=== PATIENT | male | born 1990 | race Caucasian/White ===

== ENCOUNTER 2016-12-06 11:40 | Day surgery (SDC) | payer OTHER ==
[2016-12-06] VITALS (7 sets, daily range): BP systolic 150–179; BP diastolic 77–103; PULSE 56–68; RESP 13–21; O2SAT 96–99
[~2016-12-06] VITALS: Ht 175.9 cm; Wt 161.9 kg
[2016-12-06] MEDS: Lactated Ringer's 1,000 ML IV SCH ×2 (11:35→13:30)
[~2016-12-06 11:40] MED LIST: CYCL10TA9 PO; CeFAZolin Inj 3 GM in IV Premix 1 EACH IV ONE; DOXY100T2 PO; HYDR-4003 PO; TRAZ-115 PO
[2016-12-06] MEDS ORDERED: Propofol 10,000 mCg/mL 20 mL Inj ONE (11:41)
[2016-12-06] MEDS ORDERED: fentaNYL-PF 50 mCg/mL 2 mL Inj ONE (11:41)
[2016-12-06] MEDS ORDERED: CeFAZolin Inj 3 Gm/ D5W 50 mL Bag IV ONE (12:22)
--- NOTE | 2016-12-06 13:43 | PCM.HPANE ---
Patient Data Surgeon Admitting Provider: Attending Provider:Rama Rausch DPM Primary Care Physician:Rupesh Elias MD Other Provider:Di Alberts Anesthesia Reason for Visit Right Foot Subluxed 1ST Ip Joint Ht/WT & BMI Height (Feet): 5 Height (Inches): 9.25 Weight (Kilograms): 161.9 Body Mass Index 52.00 Allergies Coded Allergies: No Known Allergies (Unverified , 08/06/15) Past Anesthesia History Anesthesia History: Denies:: Abnormal Airway, Anesthesia Reactions, Difficult Intubation, Fam Anesthesia Reaction Diabetes History Hx Diabetes?: No MRSA MRSA: No (unsure of- poss a couple years ago) Medications Hypertension Medication: No Home Meds Incl Beta Amy: No Reported Medications Hydrocodone-Acetaminophen 5-325 mg 1 Each Tablet1 Tablet PO Q4H PRN For Pain Ref 0 12/05/16 Discontinued Reported Medications Trazodone 50 Mg [id number] Mg PO HS Ref 0 12/05/16 Doxycycline Hyclate 100 Mg [id number] Mg PO BID 12/05/16 Cyclobenzaprine 10 Mg [id number] Mg PO TID PRN Spasm 12/05/16 History HEENT History: Denies:: Abnormal Airway Cataracts Difficult Intubation Dysphagia Glaucoma Hearing Problem Sinus Problem TMJ Cardiovascular History: Denies:: AICD Abdominal Aortic Aneurism Atrial Fibrillation Chest Pain Congestive Heart Failure Coronary Artery Disease Heart Murmur Hypertension (possible, not been diagnosed but high at [facility] appts) Irregular Heartbeat Pacemaker Peripheral Vascular Hx of Respiratory Problem?: No Respiratory History: Denies:: Asthma COPD Dyspnea Emphysema Oxygen Administration Pneumonia Pulmonary Embolism Tuberculosis Use of C-PAP Machine (past use, stopped using CPAP 3 years ago, couldnt tolerate) Use of Inhalers / NEBS Hx Neurologic Problems?: No Neurological History: Denies:: CVA Headaches Multiple Sclerosis Parkinson's Disease Seizures TIA Other Neurological Pertinent: hx of hereditary neuropathy Hx of GI Problems?: No Gastrointestinal History: Denies:: Cirrhosis Gall Bladder Disease Gastroesphageal Reflux Gastrointestinal Bleeding Heartburn Hepatitis Hiatal Hernia Liver Disease Rectal Bleeding Hx of Problems?: No Genitourinary History: Denies:: Kidney Stones Urinary Tract Infection Male Hx: Denies:: Prostate Problems Scrotal Mass Testicular Surgery Skin History: Positive for:: History Skin Disorders? (wound right foot) Denies:: Pressure Ulcers Hx Musculoskeletal Problems?: Yes Musculoskeletal History: Positive for:: Musculoskeletal Trauma (right foot non healing wound) Denies:: Back Injury Fibromyalgia Myasthenia Gravis Osteoarthritis Hx of Psycho/Social Problems?: Yes Psycho Social History: Positive for:: Hx Depression (in past) Denies:: Anxiety Hx Surgeries?: Yes (multiple foot surgery) Hx Any Other Health Problems?: Yes Other History: Denies:: Cancer Thyroid Disease History Blood Transfusions: Positive for:: Accept Blood Products? Denies:: Blood Transfusions Hx Diabetes: No Hx Alcohol Use: YesAlcoholic Drinks Per Day: couple of beers eveningHx Substance Use: Yes (marijuana daily)Have You Smoked inLast 12 mo: No Stop/Bang S-Snoring: Do You Snore Loudly: No T-Tired: feel tired, fatigued: No O-Obsered: Observed not breath: No P-Blood Pressure: treated: No B- Body Mass Index > 35 kg/m2: Yes A- Age over 50: Yes N- Neck Large Circumference: Yes G- Gender Male: Yes MIMI Total Score: 4 Risk Assessment Category Category 1A: Patient has history of documented sleep apnea, and HAS NOT received any narcotic, sedative or anesthesia administration during this stay. Category 1B: Patient has history of documented sleep apnea, and HAS received any narcotic , sedative or anesthesia administration during this stay Category 2: Patient has SUSPECTED Obstructive Sleep Apnea, and HAS received any narcotic , sedative or anesthesia administration during this stay. Category 3: Patient has SUSPECTED Obstructive Sleep Apnea and HAS NOT received narcotic, sedative or anesthesia administration during this stay. Category 4: Outpatient in Procedural Areas with known sleep apnea or who screen positive for High Risk via the STOP/BANG questionnaire. Exam Exam Vital Signs Vital Signs Date Time Temp Pulse Resp B/P Pulse Ox O2 Delivery O2 Flow Rate FiO2 12/06/16 12:34 36.4 68 18 167/77 99 Room Air General Appearance: Alert, Oriented X3, Cooperative HEENT/AIRWAY: MP 2 Lungs: Clear to Auscultation Heart: Exam Unremarkable Meds/Labs/Diagnostics Admission Meds Current Medications Lactated Ringer's (Lr) 1,000 ml @ 120 mls/hr Q8H20M IV Last administered on t 11:35; Start 12/06/16 at 05:00; Stop 12/06/16 at 13:19; Status DC Plan Impression Patient chart reviewed, patient interviewed and anesthestic plan with risks, benefits, and alternatives discussed, and informed consent obtained. NPO Status: water at 0830 ASA Physical Status: ASA3 Severe Disease Anesthetic Plan: MAC Bene/Risks/Altern/Consents: Yes HP Complete Prior to Induction: Yes Wilmar Lew MD Dec 06, 2016 13:43
[2016-12-06] MEDS ORDERED: Lidocaine 2%-Epi 1:100,000 20 mL Inj INFILTRATE ONE (14:33)
[2016-12-06] MEDS ORDERED: Lidocaine PF 1% 30 mL Inj NERVEBLOCK ONE (14:33)
[2016-12-06] MEDS ORDERED: Bupivacaine-MPF 0.5% 30 mL Inj INFILTRATE ONE (14:34)
[2016-12-06] MEDS ORDERED: Lactated Ringer's 1,000 ML IV ONE (15:10)
[2016-12-06] MEDS ORDERED: HYDROcodone-APAP 5-325 mg Tablet PO PRN (15:50)
[2016-12-06] MEDS ORDERED: Lactated Ringer's 1,000 ML IV SCH (15:54)
[2016-12-06] MEDS ORDERED: Lactated Ringer's 500 ML IV PRN (15:54)
--- NOTE | 2016-12-06 15:54 | PCM.PODPO ---
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 It was excised, along with the entire joint, in preparation for fusion. Details of Procedure The patient was identified in the preoperative holding area and brought back to the operating room. He was placed on the operating table in supine position. The timeout protocol was completed and the right foot confirmed as operative site. The right foot was anesthetized with a local block after IV sedation was initiated. The right foot was prepped and draped in usual aseptic manner. An incision was made on the dorsomedial aspect of the first metatarsophalangeal joint and extended medially and horizontally across the interphalangeal joint. Bleeding vessels were cauterized as needed, but they continue to bleed slightly throughout the case. After cold irrigation with saline was applied, the bleeding subsided. The extensor hallucis longus tendon was transected at the interphalangeal joint. The joint was resected, the underlying sesamoid was found to be soft and was resected as well. The wound was irrigated with normal saline, the joint surfaces reapproximated and fixated with a single partially threaded 3.5 mm cannulated screw from distal tuft across the interphalangeal joint and into the proximal phalanx. Fluoroscopic guidance was used to confirm joint apposition and hardware placement. The plantar ulceration, measuring 0.6 x 0.3 cm in size and 0.5 cm in depth, was excised through skin and subcutaneous tissue. Post-debridement measurement was 1 cm x 0.5 cm and 0.5 cm deep. 1 Prolene in horizontal suture was used to reapproximate the edges. The patient tolerated the procedure well, was weaned off of anesthesia, and taken to the recovery room with vital signs stable and vascular status of the right foot intact. Grafts, Implants: Implants-See Implant Record Complications There were no periprocedural complications identified. Condition Stable Anesthetic Administered: MAC Drains: None Catheters: None Output, Estimated Blood Loss: 30 (ml) Blood Admin during surgery: No Surgical Cast or Splint: Post-op Boot Surgical Specimen Removed: No Specimen sent to Pathology: No Post Operative Plan Weight-bear to tolerance, only inside the house for basic needs for 2 weeks. Discharge home with postop follow-up next week, as previously arranged. Rama Rausch DPM Dec 06, 2016 15:54
[2016-12-06] MEDS ORDERED: MetoCLOpramide 5 mg/mL 2 mL Inj IVPUSH PRN (15:55)
[2016-12-06] MEDS ORDERED: Ondansetron 2 mg/mL 2 mL Inj IVPUSH PRN (15:55)
[2016-12-06] MEDS ORDERED: fentaNYL-PF 50 mCg/mL 2 mL Inj IVPUSH PRN (15:55)
[2016-12-06] MEDS ORDERED: EPHEDrine Sulfate 50 mg/mL Inj IVPUSH PRN (15:55)
[2016-12-06] MEDS ORDERED: HYDROmorphone 1 mg/mL Inj IVPUSH PRN (15:55)
[2016-12-06] MEDS ORDERED: Dexamethasone 4 mg/mL Inj IVPUSH PRN (15:55)
[2016-12-06] MEDS ORDERED: Phenylephrine 10,000 mCg/mL Inj IVPUSH PRN (15:55)
--- NOTE | 2016-12-06 15:57 | PCM.ANEP1 ---
Post Anesthesia Phase 1 PACU Phase 1 Assessment Date of Service: Dec 06, 2016 Vital Signs Vital Signs Date Time Temp Pulse Resp B/P Pulse Ox O2 Delivery O2 Flow Rate FiO2 12/06/16 15:52 36.0 66 21 179/103 96 Room Air 12/06/16 12:34 36.4 68 18 167/77 99 Room Air Anesthetic Administered: MAC Level of Alertness: Awake, talking RIVERO's with Equal Strength: Yes Pain: No Nausea or Vomiting: No Oxygen Delivery: Room Air Lungs: Clear to Auscultation Dermatome Level: Full Sensation Wilmar Lew MD Dec 06, 2016 15:57
--- NOTE | 2016-12-06 15:58 | PCM.ANEP2 ---
Post Anesthesia Evaluation ASA/CMS Post Anesthesia VS in Patient's Normal Range?: Yes Resp Stable; Airway Patent?: Yes CV Function & Hydration Stable: Yes Mental Status Recovered?: Yes Pain control Satisfactory?: Yes N/V Control Satisfactory?: Yes Wilmar Lew MD Dec 06, 2016 15:58
== END 2016-12-06 23:59 | disposition home or self-care (01) ==
LOC: SAS 11:40
PROVIDERS: ATTEND Podiatrist
PROC: 0JBQ0ZZ Excision of Right Foot Subcutaneous Tissue and Fascia, Open Approach (ICD-10-PCS; principal; 2016-12-06 13:30)
DX: M20.5X1 Other deformities of toe(s) (acquired), right foot (principal); L97.511 Non-pressure chronic ulcer of other part of right foot limited to breakdown of skin; G62.9 Polyneuropathy, unspecified; F32.9 Major depressive disorder, single episode, unspecified; F12.90 Cannabis use, unspecified, uncomplicated
CPT/HCPCS: 11042; 28755; 76000; C1713; J0690; J2250; J3010; J7120

== ENCOUNTER 2017-05-26 17:06 | Inpatient (IN) | payer OTHER ==
[~2017-05-26] VITALS: Ht 175.3 cm; Wt 156.6 kg
[~2017-05-26 17:06] MED LIST changes: -CYCL10TA9 PO; -CeFAZolin Inj 3 GM in IV Premix 1 EACH IV ONE; -DOXY100T2 PO; -TRAZ-115 PO
[2017-05-26 17:15] VITALS: PULSE 82; RESP 34; O2SAT 100
[2017-05-26] MEDS ORDERED: SULF1TAB7 PO (17:48)
[2017-05-26] MEDS ORDERED: OXYC15TA45 PO (17:48)
--- NOTE | 2017-05-26 17:49 | ED.REPORT ---
HPI-Extremity Problem Lower Date of Service May 26, 2017 ED Provider: Dr. Mandeep Webber MD A 26 year old male with a history of hereditary peripheral neuropathy, right rockerbottom foot deformity and reducible hammertoes presents to the ED with left LE cellulitis that began [address] Rausch sent the patient to the ED for further evaluation following an ineffective course of Bactrim. Patient presents with increased swelling and erythema to the affected foot. Associated symptoms also include a fever of 103F, cough and vomiting. His symptoms have become progressively worse over the past 3 days. Nursing Notes Stated Complaint: CELLULITIS INFECTION Chief Complaint: General Complaint Nursing Notes Reviewed: Yes Allergies: Coded Allergies: No Known Allergies (Unverified , 08/06/15) Scheduled Sulfamethoxazole/Trimeth 800-160 mg (Bactrim DS) 1 Each Tablet 1 TABLET PO BID Scheduled PRN Oxycodone (Roxicodone) 15 Mg Tablet 15 MG PO Q6H PRN PRN For Pain General Time Seen by MD: 17:49 Chief Complaint Leg injury left Hx Obtained From: Patient Arrived By: Walk-in Onset Occurred: 3 days ago Symptom Duration: Since onset Location: : Leg left Quality: Painful Severity: Current: Moderate Severity: Maximum: Moderate Associated with: Reports: Fever Pertinent Negative: Pt denies other symptoms Recent Healthcare: No recent hospitalization, Recent doctor visit Past Medical History Past Medical History Hereditary peripheral neuropathy Right rockerbottom foot deformity Reducible hammertoes Past Surgical History Right hallux interphalangeal joint fusion Excisional debridement of plantar right hallux ulceration with primary reapproximation Smoking History Unknown if Ever Smoker Social History Alcohol Use: Denies alcohol use Drug Use: Denies drug use Other Social History: Good social support, Local resident Ambulatory Status Independent Review of Systems Constitutional: Reports: Fever Musculoskeletal: Reports: Extremity pain (L foot pain), Extremity swelling (L foot swelling ad redness) Complete sys rev & neg: except as marked. Respiratory: Reports: Non-productive cough GI: Reports: Vomiting Physical Exam Initial Vital Signs Vital Signs (First) Date Time Temp Pulse Resp B/P Pulse Ox O2 Delivery O2 Flow Rate FiO2 05/26/17 17:15 37.7 82 34 100 Room Air 05/26/17 19:00 141/71 Initial VS: Reviewed Head / Eyes: Atraumatic, Normocephalic, PERRL Neck: Supple, Non-tender, Full range of motion Upper Extremities: Vascular intact, Neuro intact, No swelling, No tenderness Skin: Warm, Dry, No cyanosis Neurologic: Alert, Oriented, Nonfocal Psychiatric: Mood/affect normal, Behavior normal, Normal thought content Lower Extremity / Pelvis / MS: Atraumatic, Neurologic intact, Vascular intact Bright red cellulitis to the left leg and foot with small patches of erythema Exquisitely tender No signs of DVT Ankle / Foot: Atraumatic, Neurologic intact, Vascular intact ANKLE/FOOT: Bright red cellulitis to the left leg and foot with small patches of erythema Exquisitely tender No signs of DVT General/Constitutional: Awake, Alert Appearance / Presentation: Positive: Ill appearing/not toxic, Uncomfortable GENERAL: Febrile Respiratory / Chest: Atraumatic, Breath sounds NL, Breath sounds = bilat, No respiratory distress Cardiovascular: Regular rhythm, Heart sounds NL Heart Rate / Rhythm: Positive: Tachycardia Interpretation & Diagnostics Lab Results Interpretation Result Diagram: 05/26/17192005/26/171920 Test 05/26/17 17:55 05/26/17 19:10 05/26/17 19:21 05/26/17 20:30 Urine Color Yellow (YELLOW) Urine Appearance Clear (CLEAR,HAZY) Urine pH 8.0 (5.0-8.0) Urine Specific [place] 1.015 (1.003-1.035) Urine Protein Negativemg/dL (NEG,TRACE) Urine Glucose (UA) Negativemg/dL (NEGATIVE) Urine Ketones Tracemg/dL (NEGATIVE) Urine Occult Blood Negative (NEGATIVE) Urine Nitrite Negative (NEGATIVE) Urine Bilirubin Negative (NEGATIVE) Urine Urobilinogen Normalmg/dL (NORMAL) Urine Leukocyte Esterase Negative (NEGATIVE) Urine RBC 0-2/hpf (0-2) Urine WBC 0-5/hpf (0-5) Urine Epithelial Cells Occasional/hpf (NONE-MOD) Urine Crystals None seen (NONE SEEN) Urine Bacteria Few/hpf (NONE-FEW) Urine Hyaline Casts None/lpf (NONE) Urine Granular Casts None seen (NONE SEEN) Urine Waxy Casts None seen (NONE SEEN) Urine Red Blood Cell Casts None seen (NONE SEEN) Urine White Blood Cell Casts None seen (NONE SEEN) Urine Mucus None seen (None Seen) Urine Trichomonas None seen (NONE SEEN) Urine Yeast None (NONE SEEN) Urinalysis Comment None Urine Culture Reflexed Not indicated Lactic Acid Level 1.1mmol/L (0.4-2.0) White Blood Count 11.4th/mm3 (3.8-10.1) Red Blood Count 4.78mil/mm3 (4.40-5.80) Hemoglobin 13.9g/dL (13.8-17.2) Hematocrit 41.6% (41.0-50.0) Mean Corpuscular Volume 87.0fL (81-100) Mean Corpuscular Hemoglobin 29.1pg (27.0-35.0) Mean Corpuscular Hemoglobin Concent 33.4% (32.0-37.0) Red Cell Distribution Width 12.5% (12.3-15.4) Platelet Count 287bil/L (150-400) Neutrophils (%) (Auto) 88.0% (40-74) Lymphocytes (%) (Auto) 3.6% (14-46) Monocytes (%) (Auto) 8.1% (4-12) Eosinophils (%) (Auto) 0% (0-5) Basophils (%) (Auto) 0.1% (0-3) Sodium Level 134mEq/L (134-144) Potassium Level 3.8mEq/L (3.5-5.2) Chloride Level 98mEq/L (97-108) Carbon Dioxide Level 18mmol/L (18-29) Blood Urea Nitrogen 7mg/dL (6-20) Creatinine 0.82mg/dL (0.76-1.27) Estimat Glomerular Filtration Rate 122mL/min (>59) Glucose Level 112mg/dL (60-99) Calcium Level 9.0mg/dL (8.5-10.1) Magnesium Level 1.9mg/dL (1.6-2.6) Total Bilirubin 0.4mg/dL (0.0-1.2) Aspartate Amino Transf (AST/SGOT) 15U/L (0-50) Alanine Aminotransferase (ALT/SGPT) 13U/L (0-44) Alkaline Phosphatase 89U/L (25-150) Troponin T < 0.010ug/L (0.0-0.011) Total Protein 7.4g/dL (6.4-8.4) Albumin 3.8g/dL (3.4-5.0) Hold Sanchez Top Tube Received (Received) Hold Urine Received (Received) X-Ray Chest Interpretation Chest Xray Interpretation: IMPRESSION: No acute cardiopulmonary disease. Dictated by: Luis Pagan M.D. on 05/26/2017 at 18:21 Interpretation / Wet Read by: Interpret - Radiologist Re-Eval/Medical Decision Med Decision/Clinical Course Cellulitis in spite of oral antibiotics. Febrile at home. Podiatry involved. We will admit for IV antibiotics. Re-Evaluation/Progress : Time of Eval: 19:13 Patient Status: Condition improved Re-Evaluation/Progress Note: Pain is still present and the patient is requesting pain medication. Counseled Regarding: Diagnosis, Lab results, Need for admission Discharge & Departure Impression: Primary Impression: Cellulitis of left lower extremity Disposition: ADMITTED TO HOSPITAL Discharge Condition All VS Reviewed: Yes Condition: Stable Referrals: Rupesh Elias MD (PCP) Scribe Attestation Portions of this note were transcribed by Osiel Reeves. I, Dr. Webber personally performed the history, physical exam and medical decision-making; I reviewed and confirmed the accuracy of the information in the transcribed note. copies to: Rupesh Elias MD, Todd P DO May 26, 2017 17:49 OSIEL REEVES May 26, 2017 18:05
[2017-05-26] MEDS ORDERED: Piperacillin-Tazo 3.375 Gm Inj 3.375 GM in Dextrose 5% Minibag Plus 50 ML IV ONE (18:10)
[2017-05-26 18:22] LABS: APPEARANCE,URINE CLEAR (CLEAR,HAZY); COLOR,URINE YELLOW (YELLOW); OCCULT BLOOD,URINE NEGATIVE (NEGATIVE); UROBILINOGEN,URINE NORMAL (NORMAL)
--- NOTE | 2017-05-26 18:22 | DRSVH ---
PROCEDURE: X-RAY CHEST ONE VIEW, PORTABLE ([id number]) INDICATIONS: 26 year-old male with cellulitis and fevers. TECHNIQUE: One view of the chest was acquired. COMPARISON: None. FINDINGS: Surgical changes and devices: None. Lungs and pleura: No pleural effusions or pneumothorax. Lungs are clear. Mediastinum: Mediastinal contours appear normal. Heart size is normal. Bones and chest wall: No suspicious bony lesions. Overlying soft tissues appear unremarkable. IMPRESSION: No acute cardiopulmonary disease. Dictated by: Luis Pagan M.D. on 05/26/2017 at 18:21 Approved by: Luis Pagan M.D. on 05/26/2017 at 18:21
[2017-05-26 19:00] VITALS: BP 141/71; PULSE 76; RESP 21; O2SAT 99
[2017-05-26 19:26] LABS: BASOPHILS % (AUTO) 0.1 % (0-3); EOSINOPHILS % (AUTO) 0 % (0-5); MONOCYTES % (AUTO) 8.1 % (4-12); Mean Corpuscular Hemoglobin 29.1 pg (27.0-35.0); Platelet Count 287 bil/L (150-400)
[2017-05-26 19:49] LABS: TROPONIN T < 0.010 ug/L (0.0-0.011)
[2017-05-26 19:58] LABS: Magnesium 1.9 mg/dL (1.6-2.6)
[2017-05-26] MEDS ORDERED: Polyethylene Glycol (PEG) 17 Gm Powder PO PRN (20:40)
[2017-05-26] MEDS ORDERED: Alum-Mag Hydrox-Simeth 30 mL Suspension PO PRN (20:40)
[2017-05-26] MEDS: Vancomycin Dose per Pharmacist XX SCH (20:40)
--- NOTE | 2017-05-26 20:41 | PCM.HPMED ---
Subjective Date of Service May 26, 2017 Primary Provider: Admitting Physician: Primary Care Physician: Rupesh Elias MD Attending Physician: Admit Status: From the Emergency Department Chief Complaint: lower extremity infection History of Present Illness: 26yoM with past medical history of hereditary peripheral neuropathy admitted for worsening of chronic infection in lower extremity. Patient is interviewed with mother, father and brother present. Patient continues to be a little confused and majority of history is obtained from mother. Mr. Carter has a history of peripheral neuropathy and chronic toe ulcers managed by Dr. Rausch or podiatry. Most recently with history of right lower extremity cellulitis 2 weeks prior to presentation. On 05/24 patient began to have increased erythema of the left second toe and started on bactrim. He was able to take 3 doses and following the fourth dose, prior to admission , patient became nauseated with associated vomiting,fevers, chills, confusion and worsening left lower extremity erythema. Dr. Rausch was notified and advised to present to [facility] ED. Upon arrival patient with mildly elevated temperature at 37.7, RR of 37 and WBC 11.4. CXR was completed with recent increase in coughing and some complaints of mild dyspnea with results of no acute cardiopulmonary disease. Following admission to the floor patient and family feel that mentation has improved and overall patient is feeling better. Review of Systems: complete review of systems obtained. positive as per hpi othwerwise negative Allergies Coded Allergies: No Known Allergies (Unverified , 08/06/15) Home Medications Oxycodone 15mg q4hr PRN Bactrim PMH Hereditary peripheral neuropathy Right rockerbottom foot deformity Reducible hammertoes Surgical History Right hallux interphalangeal joint fusion Excisional debridement of plantar right hallux ulceration with primary reapproximation Family History Maternal grandfather - CAD Paternal grandfather - CVA Sister - peripheral neuropathy following surgery Social History Occupation: works at [employer] Hx Alcohol Use: Yes Hx Substance Use: Yes (marijuana daily) Smoking Status: Light Tobacco Smoker (cigars infrequently) Living Arrangement: with Family Exam Vital Signs Vital Sign - Last Date Time Temp Pulse Resp B/P Pulse Ox O2 Delivery O2 Flow Rate FiO2 05/26/17 19:00 76 21 141/71 99 05/26/17 17:15 37.7 Room Air Exam Exam General: Alert, Oriented X3, Cooperative, No acute Distress Eyes: PERRLA, Scleral Anicteric Mouth: Mouth Normal, Mucous Membranes Moist/[place] Neck: Supple, no Thyromegaly, trachea central. Chest & Lungs: Clear to auscultation & percussion, No adventitious breath sounds, no crackles, no wheeze Cardiovascular: Normal S1, Normal S2, No Murmurs/Rubs/Gallops, Regular Rate/ Rhythm Pulses: Radial (present and equal), Dorsalis Pedi (present and equal) Abdomen: Soft,No Tenderness, Non-distended, Normoactive bowel tones. Musculoskeletal: Unremarkable. Normal range of motion, no swollen or erythematous joints aside from left lower extremity Extremities: No edema, no cyanosis, no clubbing --- right lower extremity toes taped, no erythema, erythema / warmth noted on left second toe, wrapped and taped on admission, some mild erythema above sock line, warm Skin: No rashes. Warm and dry Neurological: Grossly neurologically intact, Normal Speech, Sensation Intact Lymphatic: Lymph nodes Cervical and Axillary not palpable. Lab and Diagnostics Result Diagram: 05/26/17192005/26/171920 X-Rays, CTs and MRIs Patient Name: TC CARTER MR#: [id number] [place] [facility] [place]ing Phys: SUSANNA, HARRY ODELL Date of Service: 05/26/171744 PROCEDURE: X-RAY CHEST ONE VIEW, PORTABLE ([id number]) INDICATIONS: 26 year-old male with cellulitis and fevers. TECHNIQUE: One view of the chest was acquired. COMPARISON: None. FINDINGS: Surgical changes and devices: None. Lungs and pleura: No pleural effusions or pneumothorax. Lungs are clear. Mediastinum: Mediastinal contours appear normal. Heart size is normal. Bones and chest wall: No suspicious bony lesions. Overlying soft tissues appear unremarkable. IMPRESSION: No acute cardiopulmonary disease. Dictated by: Luis Pagan M.D. on 05/26/2017 at 18:21 Approved by: Luis Pagan M.D. on 05/26/2017 at 18:21 Assessment & Plan 26yoM with past medical history of hereditary peripheral neuropathy admitted for worsening of chronic infection in lower extremity. Cellulitis, acute, POA -not meeting sepsis criteria on admission -failure of outpatient treatment as per report, keflex, n/v -piperacillin-tazobactam and vancomycin started in ED, continued, pharmacy to dose vancomycin -pain management, oxycodone 15mg POq4hr PRN, acetaminophen PRN -podiatry consult in am, Dr. Sanchez electric gas appliances demonstrator 05/27 ([phone]), defer to podiatry for further imaging Cough, acute, POA -recent increase in non-productive cough -WBC elevated but likely 2/2 cellulitis -CXR reviewed on admission, no acute disease present Leukocytosis, acute, POA -secondary to cellulitis -treatment as above Elevated glucose, acute, POA -no history of diabetes -hgbA1c added onto admit labs and pending Morbid obesity, chronic, POA -BMI 50.3 Patient will be admitted under inpatient status due to severity of illness and requirement for IV antibiotics. Length of stay >2 midnights. Pain Evaluation: Adequate Pain Control GI Prophylaxis: Not indicated VTE Prophylaxis: Sub-Q Heparin (Unfractionated) Resuscitation Status: CPR: Attempt Resuscitation Izabela Singh DO May 26, 2017 20:41
--- NOTE | 2017-05-26 21:20 | NUR ---
Admit Received report from Parminder Rizo RN ED @ 20:45, patient srriving this time via [employer] w/career technical education instructor and mult family, ambulated ind to bed , dx celulitis/toe infection vanco given in ED to start zosyn wounds packed in ED admission complete Addendum: 05/26/17 at 2315 by RASHID CASTAÑEDA RN correction per patient wounds were changed/packed at wound clinic prior ED
[2017-05-26 21:26] VITALS: BP 139/88; PULSE 70; RESP 18; O2SAT 99
--- NOTE | 2017-05-26 21:55 | PCM.CONPHA ---
Subjective Date of Service: May 26, 2017 lower extremity infection Reason for Pharmacy Consult: Vancomycin Dosing Objective Vital Signs Date Time Temp Pulse Resp B/P Pulse Ox O2 Delivery O2 Flow Rate FiO2 05/26/17 21:26 37.2 70 18 139/88 99 Room Air 05/26/17 19:00 76 21 141/71 99 05/26/17 17:15 37.7 82 34 100 Room Air Weight (Kilograms): 156.600 Height (Feet): 5 Height (Inches): 9.00 Test 05/26/17 17:55 05/26/17 19:10 05/26/17 19:21 05/26/17 20:30 Urine Color Yellow (YELLOW) Urine Appearance Clear (CLEAR,HAZY) Urine pH 8.0 (5.0-8.0) Urine Specific [place] 1.015 (1.003-1.035) Urine Protein Negativemg/dL (NEG,TRACE) Urine Glucose (UA) Negativemg/dL (NEGATIVE) Urine Ketones Tracemg/dL (NEGATIVE) Urine Occult Blood Negative (NEGATIVE) Urine Nitrite Negative (NEGATIVE) Urine Bilirubin Negative (NEGATIVE) Urine Urobilinogen Normalmg/dL (NORMAL) Urine Leukocyte Esterase Negative (NEGATIVE) Urine RBC 0-2/hpf (0-2) Urine WBC 0-5/hpf (0-5) Urine Epithelial Cells Occasional/hpf (NONE-MOD) Urine Crystals None seen (NONE SEEN) Urine Bacteria Few/hpf (NONE-FEW) Urine Hyaline Casts None/lpf (NONE) Urine Granular Casts None seen (NONE SEEN) Urine Waxy Casts None seen (NONE SEEN) Urine Red Blood Cell Casts None seen (NONE SEEN) Urine White Blood Cell Casts None seen (NONE SEEN) Urine Mucus None seen (None Seen) Urine Trichomonas None seen (NONE SEEN) Urine Yeast None (NONE SEEN) Urinalysis Comment None Urine Culture Reflexed Not indicated Lactic Acid Level 1.1mmol/L (0.4-2.0) White Blood Count 11.4th/mm3 (3.8-10.1) Red Blood Count 4.78mil/mm3 (4.40-5.80) Hemoglobin 13.9g/dL (13.8-17.2) Hematocrit 41.6% (41.0-50.0) Mean Corpuscular Volume 87.0fL (81-100) Mean Corpuscular Hemoglobin 29.1pg (27.0-35.0) Mean Corpuscular Hemoglobin Concent 33.4% (32.0-37.0) Red Cell Distribution Width 12.5% (12.3-15.4) Platelet Count 287bil/L (150-400) Neutrophils (%) (Auto) 88.0% (40-74) Lymphocytes (%) (Auto) 3.6% (14-46) Monocytes (%) (Auto) 8.1% (4-12) Eosinophils (%) (Auto) 0% (0-5) Basophils (%) (Auto) 0.1% (0-3) Sodium Level 134mEq/L (134-144) Potassium Level 3.8mEq/L (3.5-5.2) Chloride Level 98mEq/L (97-108) Carbon Dioxide Level 18mmol/L (18-29) Blood Urea Nitrogen 7mg/dL (6-20) Creatinine 0.82mg/dL (0.76-1.27) Estimat Glomerular Filtration Rate 122mL/min (>59) Glucose Level 112mg/dL (60-99) Calcium Level 9.0mg/dL (8.5-10.1) Magnesium Level 1.9mg/dL (1.6-2.6) Total Bilirubin 0.4mg/dL (0.0-1.2) Aspartate Amino Transf (AST/SGOT) 15U/L (0-50) Alanine Aminotransferase (ALT/SGPT) 13U/L (0-44) Alkaline Phosphatase 89U/L (25-150) Troponin T < 0.010ug/L (0.0-0.011) Total Protein 7.4g/dL (6.4-8.4) Albumin 3.8g/dL (3.4-5.0) Hold Sanchez Top Tube Received (Received) Hold Urine Received (Received) Assessment/Plan Assessment/Plan VANCOMYCIN MANAGEMENT A\ 26YO ADMITTED FOR TOE CELLULITIS SCR=0.82 CRCL=>200 WBC=11.4 LACT=1.1 FEBRILE ADJUSTED WEIGHT 104KG ACTUAL WEIGHT 155KG RECEIVED VANCOMYCIN 2250MG IV X1 IN THE ER ALSO RECEIVING ZOSYN 3.375GRAM IV Q8H EXTENDED INFUSION P WILL USE ADJUSTED WEIGHT AND START VANCOMYCIN 1250[place] [address]/19 WITH A LEVEL BEFORE THE 4TH DOSE AT 8\19 1730 WILL MONITOR SERUM CREATININE DAILY X3 Bertin Hagan [facility] May 26, 2017 21:55
[2017-05-27] MEDS: Heparin 5,000 Unit/mL Inj SUBQ SCH ×3 (01:27→17:43)
[2017-05-27] MEDS: Vancomycin Inj 1,250 MG in 0.9% Sodium Chloride 250 ML IV SCH ×3 (01:28→18:12)
[2017-05-27 01:38] VITALS: BP 148/88; PULSE 66; RESP 18; O2SAT 99
[2017-05-27] MEDS: Ondansetron 2 mg/mL 2 mL Inj IVPUSH PRN ×5 (04:23→14:24)
[2017-05-27] MEDS ORDERED: Piperacillin-Tazo 3.375 Gm Inj 3.375 GM in Dextrose 5% Minibag Plus 50 ML IV SCH (06:00)
[2017-05-27 06:10] VITALS: BP 144/84; PULSE 78; RESP 18; O2SAT 96
[2017-05-27 07:36] LABS: BASOPHILS % (AUTO) 0.1 % (0-3); EOSINOPHILS % (AUTO) 0 % (0-5); MONOCYTES % (AUTO) 12.5 % (4-12); Mean Corpuscular Hemoglobin 29.6 pg (27.0-35.0); Mean Corpuscular Volume 87.1 fL (81-100); NEUTROPHILS % (AUTO) 81.6 % (40-74); Platelet Count 268 bil/L (150-400)
[2017-05-27] MEDS: Vancomycin Dose per Pharmacist XX SCH (08:30)
--- NOTE | 2017-05-27 09:15 | PCM.CHPPOD ---
Subjective Date of service May 27, 2017 History of Present Illness The patient was admitted to the hospital yesterday after being seen by me [facility] with increasing redness and swelling of the left foot and lower leg, ascending erythema, nausea, vomiting, fevers, chills, confusion. The patient states he is feeling much better today, although nausea persists. He admits that he stopped taking his blood pressure medication. His systolic blood pressure is frequently in the 160-180 range on an outpatient basis. He has denied diabetes in the past. He has a peripheral neuropathy for which we have no cause. 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 Surgical History: (1) Status post right foot surgery Social History Occupation: works at [employer] Hx Alcohol Use: Yes Hx Substance Use: Yes (marijuana daily) Smoking Status: Light Tobacco Smoker (cigars infrequently) Podiatry Consult Exam Vital Signs Vital Sign - Last Date Time Temp Pulse Resp B/P Pulse Ox O2 Delivery O2 Flow Rate FiO2 05/27/17 06:10 37.6 78 18 144/84 96 Room Air Intake and Output 05/26/17 05/26/17 05/27/17 Cumulative From/Thru 15:00 23:00 07:00 05/26/17 17:15 - 05/27/17 06:21 Intake Total 500 ml 1042 ml 1542 ml Output Total 525 ml 525 ml Balance 500 ml 517 ml 1017 ml Intake Oral 720 ml 720 ml IV Total 500 ml 322 ml 822 ml Output Urine Total 525 ml 525 ml # Voids 3 3 Result Diagram: 05/27/17 0710 05/27/17 0710 Lab Test 05/26/17 17:55 05/26/17 19:10 05/26/17 19:21 05/26/17 20:30 Urine Color Yellow (YELLOW) Urine Appearance Clear (CLEAR,HAZY) Urine pH 8.0 (5.0-8.0) Urine Specific [place] 1.015 (1.003-1.035) Urine Protein Negativemg/dL (NEG,TRACE) Urine Glucose (UA) Negativemg/dL (NEGATIVE) Urine Ketones Tracemg/dL (NEGATIVE) Urine Occult Blood Negative (NEGATIVE) Urine Nitrite Negative (NEGATIVE) Urine Bilirubin Negative (NEGATIVE) Urine Urobilinogen Normalmg/dL (NORMAL) Urine Leukocyte Esterase Negative (NEGATIVE) Urine RBC 0-2/hpf (0-2) Urine WBC 0-5/hpf (0-5) Urine Epithelial Cells Occasional/hpf (NONE-MOD) Urine Crystals None seen (NONE SEEN) Urine Bacteria Few/hpf (NONE-FEW) Urine Hyaline Casts None/lpf (NONE) Urine Granular Casts None seen (NONE SEEN) Urine Waxy Casts None seen (NONE SEEN) Urine Red Blood Cell Casts None seen (NONE SEEN) Urine White Blood Cell Casts None seen (NONE SEEN) Urine Mucus None seen (None Seen) Urine Trichomonas None seen (NONE SEEN) Urine Yeast None (NONE SEEN) Urinalysis Comment None Urine Culture Reflexed Not indicated Lactic Acid Level 1.1mmol/L (0.4-2.0) Hemoglobin A1c 5.3% (4.8-5.6) Magnesium Level 1.9mg/dL (1.6-2.6) Troponin T < 0.010ug/L (0.0-0.011) Hold Sanchez Top Tube Received (Received) Hold Urine Received (Received) Test 05/27/17 07:10 White Blood Count 7.8th/mm3 (3.8-10.1) Red Blood Count 4.59mil/mm3 (4.40-5.80) Hemoglobin 13.6g/dL (13.8-17.2) Hematocrit 40.0% (41.0-50.0) Mean Corpuscular Volume 87.1fL (81-100) Mean Corpuscular Hemoglobin 29.6pg (27.0-35.0) Mean Corpuscular Hemoglobin Concent 34.0% (32.0-37.0) Red Cell Distribution Width 12.9% (12.3-15.4) Platelet Count 268bil/L (150-400) Neutrophils (%) (Auto) 81.6% (40-74) Lymphocytes (%) (Auto) 5.5% (14-46) Monocytes (%) (Auto) 12.5% (4-12) Eosinophils (%) (Auto) 0% (0-5) Basophils (%) (Auto) 0.1% (0-3) Sodium Level 134mEq/L (134-144) Potassium Level 3.9mEq/L (3.5-5.2) Chloride Level 99mEq/L (97-108) Carbon Dioxide Level 20mmol/L (18-29) Blood Urea Nitrogen 7mg/dL (6-20) Creatinine 0.79mg/dL (0.76-1.27) Estimat Glomerular Filtration Rate 127mL/min (>59) Glucose Level 115mg/dL (60-99) Calcium Level 8.8mg/dL (8.5-10.1) Total Bilirubin 0.3mg/dL (0.0-1.2) Aspartate Amino Transf (AST/SGOT) 15U/L (0-50) Alanine Aminotransferase (ALT/SGPT) 14U/L (0-44) Alkaline Phosphatase 89U/L (25-150) Total Protein 6.8g/dL (6.4-8.4) Albumin 4.0g/dL (3.4-5.0) Exam Lower Extremities: Left: Edema localized (foot, ankle, lower leg) Lower Extremity Pulses: Palpable: Left Dorsalis Pedis Left Posterior Tibal Right Dorsalis Pedis Right Posterior Tibal Podiatry WOUND : Wound Location/Description Ulcer distal tip second toe, right foot: Thick callus, after debridement measures a wound of 0.4 x 0.3 cm and 0.2 cm in depth, fibrinous, mild periwound erythema. Ulcer plantar right great toe: 0.3 cm x 0.1 cm in size, 0.2 cm in depth, callused edges. Ulcer distal tip second toe, left foot: Thick callus, after debridement measures a wound of 0.3 x 0.3 cm and 0.3 cm in depth, fibrinous, tracks laterally and dorsally with purulence, moderate periwound erythema. Resolving ascending cellulitis. Bilateral hammertoes 2 through 5. Assessment & Plan Problems: (1) Cellulitis of left lower extremity Plan: The patient is currently being treated with IV antibiotics. He has shown improvement in all symptoms over the past 12-15 hours. 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 Devitalized tissue was removed. The prep consisted of Hibiclens and irrigation of normal saline. A wound culture was obtained after de-felecia the left second toe distal callus. This was sent for aerobic and anaerobic culture workup. If negative, the patient should be treated for MSSA, which was cultured at previous visits. The most important thing is to keep him off of his feet for a week. He can bear weight to tolerance and postoperative shoes. However, it is imperative that he not return to work for 1 week to allow this to resolve in preparation for flexor tenotomy procedures to decrease the flexion contracture of the lesser digits and the chance for re-ulceration. I plan to change his dressing tomorrow, and if he continues to improve, he may be discharged home tomorrow on oral antibiotics. Status: Acute ICD Code: L97.502 VTE Prophylaxis: Sub-Q Heparin (Unfractionated) Rama Rausch DPM May 27, 2017 09:15
--- NOTE | 2017-05-27 10:22 | DRSVH ---
PROCEDURE: X-RAY TOES, TWO VIEWS INDICATIONS: ulcer 2nd toe TECHNIQUE: 3 views of the second and first toe(s) acquired. COMPARISON: [facility], CR, XR FOOT MIN 3VW WT [place] RT, 03/08/2017, 16:42. [facility], CR, XR FOOT 3VW RT, 12/23/2016, 15:02. [facility], CR, FOOT COMP MIN 3VW (RT), 05/10, 11:01. [facility], CR, XR FOOT 3VW RT, 03/25/2016, 16:01. FINDINGS: Bones: No fractures or dislocations. No suspicious bony lesions. Postsurgical distortion first int erphalangeal joint, and a previously present and cannulated cancellous screw that had been present in that area has been removed. Soft tissues: No suspicious soft tissue densities. IMPRESSION: Postsurgical distortion first interphalangeal joint. No sign of lesion at the second dig it where a ulcer he reportedly is present. That ulcer cannot be identified by this study. Depending on the clinical status followup by a contrast enhanced MR scanning may become necessary. Dictated by: Seth Pace M.D. on 05/27/2017 at 10:18 Approved by: Seth Pace M.D. on 05/27/2017 at 10:21
--- NOTE | 2017-05-27 10:23 | DRSVH ---
PROCEDURE: X-RAY TOES, TWO VIEWS INDICATIONS: ulcer 2nd toe TECHNIQUE: 3 views of the second and first toe(s) acquired. COMPARISON: None. FINDINGS: Bones: No fractures or dislocations. No suspicious bony lesions. Soft tissues: No suspicious soft tissue densities. IMPRESSION: No trauma found, no osteomyelitis seen. The exact position of the second digit ulceratio n cannot be identified by this plain film. Depending on the clinical status followup by MR scanning with contrast may become necessary. Dictated by: Seth Pace M.D. on 05/27/2017 at 10:21 Approved by: Seth Pace M.D. on 05/27/2017 at 10:22
[2017-05-27 10:30] VITALS: BP 156/83; PULSE 61; RESP 18; O2SAT 98
[2017-05-27] MEDS ORDERED: cefTRIAXone Inj 1,000 MG in Dextrose 5% Minibag Plus 50 ML IV SCH (12:30)
--- NOTE | 2017-05-27 14:21 | PCM.PNMED ---
Subjective Date of Service May 27, 2017 Subjective Left feet pain and erythema improving. Exam Vital Signs Vital Sign - Last Date Time Temp Pulse Resp B/P Pulse Ox O2 Delivery O2 Flow Rate FiO2 05/27/17 10:30 36.8 61 18 156/83 98 Room Air Intake and Output 05/26/17 05/26/17 05/27/17 Cumulative From/Thru 15:00 23:00 07:00 05/26/17 17:15 - 05/27/17 06:21 Intake Total 500 ml 1042 ml 1542 ml Output Total 525 ml 525 ml Balance 500 ml 517 ml 1017 ml Intake Oral 720 ml 720 ml IV Total 500 ml 322 ml 822 ml Output Urine Total 525 ml 525 ml # Voids 3 3 Exam General: Alert, Oriented X3, Cooperative, No acute Distress Eyes: PERRLA, Scleral Anicteric Mouth: Mouth Normal, Mucous Membranes Moist/[place] Neck: Supple, no Thyromegaly, trachea central. Chest & Lungs: Clear to auscultation & percussion, No adventitious breath sounds, no crackles, no wheeze Cardiovascular: Normal S1, Normal S2, No Murmurs/Rubs/Gallops, Regular Rate/ Rhythm Pulses: Radial (present and equal), Dorsalis Pedi (present and equal) Abdomen: Soft,No Tenderness, Non-distended, Normoactive bowel tones. Musculoskeletal: Unremarkable. Normal range of motion, no swollen or erythematous joints aside from left lower extremity Extremities: No edema, no cyanosis, no clubbing --- right lower extremity toes taped, no erythema, erythema / warmth noted on left second toe, wrapped and taped on admission, some mild erythema above sock line, warm per podiatry "Ulcer distal tip second toe, right foot: Thick callus, after debridement measures a wound of 0.4 x 0.3 cm and 0.2 cm in depth, fibrinous, mild periwound erythema. Ulcer plantar right great toe: 0.3 cm x 0.1 cm in size, 0.2 cm in depth, callused edges. Ulcer distal tip second toe, left foot: Thick callus, after debridement measures a wound of 0.3 x 0.3 cm and 0.3 cm in depth, fibrinous, tracks laterally and dorsally with purulence, moderate periwound erythema. Resolving ascending cellulitis. Bilateral hammertoes 2 through 5." Skin: No rashes. Warm and dry Neurological: Grossly neurologically intact, Normal Speech, Sensation Intact Lymphatic: Lymph nodes Cervical and Axillary not palpable. IVs and Medications Medications Reviewed: Medications were reviewed in detail Lab and Diagnostics Result Diagram: 05/27/17 0710 05/27/17 0710 X-Rays, CTs and MRIs Patient Name: TC TERRAZAS MR#: [id number] Location: [facility] [place] Ordering Phys: DOC, ED Date of Service: 05/26/17 174 PROCEDURE: X-RAY CHEST ONE VIEW, PORTABLE ([id number]) INDICATIONS: 26 year-old male with cellulitis and fevers. TECHNIQUE: One view of the chest was acquired. COMPARISON: None. FINDINGS: Surgical changes and devices: None. Lungs and pleura: No pleural effusions or pneumothorax. Lungs are clear. Mediastinum: Mediastinal contours appear normal. Heart size is normal. Bones and chest wall: No suspicious bony lesions. Overlying soft tissues appear unremarkable. IMPRESSION: No acute cardiopulmonary disease. Dictated by: Luis Pagan M.D. on 05/26/2017 at 18:21 Approved by: Luis Pagan M.D. on 05/26/2017 at 18:21 Assessment & Plan 26yoM with past medical history of hereditary peripheral neuropathy admitted for worsening of chronic infection in lower extremity. # left foot Cellulitis with ulcer , acute, POA -not meeting sepsis criteria on admission -failure of outpatient treatment as per report, keflex, n/v -piperacillin-tazobactam and vancomycin started in ED, continue with vancomycin. Switched Zosyn to ceftriaxone -pain management, oxycodone 15mg POq4hr PRN, acetaminophen PRN -podiatry Dr Rausch consulted and did bedside debridement of ulcer # Cough, acute, POA -recent increase in non-productive cough -WBC elevated but likely 2/2 cellulitis -CXR reviewed on admission, no acute disease present # Leukocytosis, acute, POA -secondary to cellulitis -treatment as above # Elevated glucose, acute, POA -no history of diabetes -hgbA1c 5.3 # Morbid obesity, chronic, POA -BMI 50.3 Patient will be admitted under inpatient status due to severity of illness and requirement for IV antibiotics. Length of stay >2 midnights. GI Prophylaxis: Not indicated VTE Prophylaxis: Sub-Q Heparin (Unfractionated) Resuscitation Status: CPR: Attempt Resuscitation Naldo Santiago MD May 27, 2017 14:21
[2017-05-27] MEDS: MetoCLOpramide 5 mg/mL 2 mL Inj IVPUSH PRN ×2 (15:20→21:54)
--- NOTE | 2017-05-27 15:32 | NUR ---
Nausea/Vomiting Patient reports nausea with emesis 250x2. IV zofran given but ineffective. Hospitalist paged and orders received for IV Reglan. Will monitor for effectiveness.
[2017-05-27 15:45] VITALS: BP 164/108; PULSE 66; RESP 18; O2SAT 98
[2017-05-27 17:00] VITALS: BP 175/112; PULSE 66
--- NOTE | 2017-05-27 17:01 | NUR ---
Blood pressure Pt BP 164/108 at the time pt in pain and nauseated. Hospitalist made aware. BP rechecked after pain and nausea decreased. BP 175/112. Hospitalist paged, awaiting response. Addendum: 05/27/17 at 1717 by FRANCINE SANCHEZ RN Order received for [facility]
[2017-05-27] MEDS ORDERED: ProchlorPERazine 5 mg/mL 2 mL Inj IVPUSH ONE (17:05)
[2017-05-27] MEDS ORDERED: Vancomycin Serum Trough XX ONE (17:30)
--- NOTE | 2017-05-27 21:14 | PCM.PHAPRO ---
Progress Date of Service: May 27, 2017 lower extremity infection VANCOMYCIN MANAGEMENT A\ 26 YO M BEING TREATED FOR CELLULITIS/TOE INFECTION VANCOMYCIN TROUGH = 14 GOAL VANCOMYCIN 10-15 PT VANCOMYCIN IS IN GOAL SCR=0.79 WBC=7.8 TROUGH TAKEN APPROXIMATELY 30MIN LATE P\ WILL CONTINUE VANCOMYCIN 1250MG IV Q8H AND CHECK ANOTHER LEVEL BEFORE THE DOSE 05/29 0930 TO MAKE SURE THE VANCOMYCIN IS NOT ACCUMULATING. Bertin Hagan [facility] May 27, 2017 21:14
[2017-05-27 21:58] VITALS: BP 143/84; PULSE 65; RESP 17; O2SAT 98
[2017-05-28] MEDS: Vancomycin Inj 1,250 MG in 0.9% Sodium Chloride 250 ML IV SCH ×2 (01:27→09:13)
[2017-05-28] MEDS: Heparin 5,000 Unit/mL Inj SUBQ SCH ×2 (01:52→09:12)
[2017-05-28] MEDS: Ondansetron 2 mg/mL 2 mL Inj IVPUSH PRN ×2 (02:00→09:18)
--- NOTE | 2017-05-28 02:15 | NUR ---
IV access IV site started leaking was painful to flush d/c'd and restarted in hand per request
--- NOTE | 2017-05-28 05:23 | NUR ---
Shift note Pain and nausea managed well with Oxycodone and alternating Zofran and Reglan
[2017-05-28 06:10] VITALS: BP 145/88; PULSE 60; RESP 17; O2SAT 96
[2017-05-28] MEDS: MetoCLOpramide 5 mg/mL 2 mL Inj IVPUSH PRN (06:14)
[2017-05-28] MEDS: Vancomycin Dose per Pharmacist XX SCH (08:30)
[2017-05-28 09:10] VITALS: BP 164/102; PULSE 71; RESP 18; O2SAT 98
--- NOTE | 2017-05-28 09:33 | PCM.DIMED ---
Discharge Instructions Date of Service May 28, 2017 Dates of Hospitalization May 26, 2017 at 20:55 Discharge Diagnosis Discharge Diagnosis # left foot Cellulitis with ulcer , acute, POA -s/p bedside debridement 06/27 # hypertension, acute, POA # Morbid obesity, chronic, POA Diet Discharge Diet: Low fat, Low Sodium Activity Discharge Activity: No restrictions Call your provider Call your provider for: Fever or Chills, Shortness of breath, Bleeding, Chest pain, Vomitting, Excessive diarrhea, Weakness (unilateral) Patient Instructions Patient Instructions You were hospitalized due to left foot cellulitis and neuropathic ulcer . Please continue Keflex as prescribed . Please follow up with Dr Rausch in 2-3 days . You have high blood pressure ,please check your BP regularly and follow up with PCP . Follow-up Provider: Rupesh Elias MD Follow-up with PCP in: 2 weeks Provider: Rama Rausch DPM Follow-up in: 1 week (2-3 days) Naldo Santiago MD May 28, 2017 09:33
--- NOTE | 2017-05-28 10:08 | PCM.PNPOD ---
Subjective Date of Service: May 28, 2017 Visit Information: Reason for Visit Cellulitis Toe Infection,Failed Out Pt Treatment Date of Admission: May 26, 2017 at 20:55 Subjective: Wounds debrided yesterday, no increased pain overnight. He still continues to have nausea. Gastrointestinal: Complains of Nausea Pain Management: PO Neurological: Numbness (peripheral selective neuropathy with chronic pain) Postop Activity: Ambulating Independently Objective Vital Sign - Last Date Time Temp Pulse Resp B/P Pulse Ox O2 Delivery O2 Flow Rate FiO2 05/28/17 06:10 36.4 60 17 145/88 96 Room Air Intake and Output 05/27/17 05/27/17 05/28/17 Cumulative From/Thru 15:00 23:00 07:00 05/26/17 17:15 - 05/28/17 06:10 Intake Total 400 ml 2424 ml 1292 ml 5658 ml Output Total 1100 ml 1000 ml 2625 ml Balance -700 ml 1424 ml 1292 ml 3033 ml Intake Oral 400 ml 1600 ml 720 ml 3440 ml IV Total 824 ml 572 ml 2218 ml Output Urine Total 1100 ml 500 ml 2125 ml Emesis 500 ml 500 ml # Voids 3 6 # Bowel Movements 1 1 Result Diagram: 05/27/17 0710 05/28/17 0625 Lab Test 05/26/17 17:55 05/26/17 19:10 05/26/17 19:21 05/26/17 20:30 Urine Color Yellow (YELLOW) Urine Appearance Clear (CLEAR,HAZY) Urine pH 8.0 (5.0-8.0) Urine Specific [place] 1.015 (1.003-1.035) Urine Protein Negativemg/dL (NEG,TRACE) Urine Glucose (UA) Negativemg/dL (NEGATIVE) Urine Ketones Tracemg/dL (NEGATIVE) Urine Occult Blood Negative (NEGATIVE) Urine Nitrite Negative (NEGATIVE) Urine Bilirubin Negative (NEGATIVE) Urine Urobilinogen Normalmg/dL (NORMAL) Urine Leukocyte Esterase Negative (NEGATIVE) Urine RBC 0-2/hpf (0-2) Urine WBC 0-5/hpf (0-5) Urine Epithelial Cells Occasional/hpf (NONE-MOD) Urine Crystals None seen (NONE SEEN) Urine Bacteria Few/hpf (NONE-FEW) Urine Hyaline Casts None/lpf (NONE) Urine Granular Casts None seen (NONE SEEN) Urine Waxy Casts None seen (NONE SEEN) Urine Red Blood Cell Casts None seen (NONE SEEN) Urine White Blood Cell Casts None seen (NONE SEEN) Urine Mucus None seen (None Seen) Urine Trichomonas None seen (NONE SEEN) Urine Yeast None (NONE SEEN) Urinalysis Comment None Urine Culture Reflexed Not indicated Lactic Acid Level 1.1mmol/L (0.4-2.0) Hemoglobin A1c 5.3% (4.8-5.6) Magnesium Level 1.9mg/dL (1.6-2.6) Troponin T < 0.010ug/L (0.0-0.011) Hold Sanchez Top Tube Received (Received) Hold Urine Received (Received) Test 05/27/17 07:10 05/27/17 18:15 05/28/17 06:25 White Blood Count 7.8th/mm3 (3.8-10.1) Red Blood Count 4.59mil/mm3 (4.40-5.80) Hemoglobin 13.6g/dL (13.8-17.2) Hematocrit 40.0% (41.0-50.0) Mean Corpuscular Volume 87.1fL (81-100) Mean Corpuscular Hemoglobin 29.6pg (27.0-35.0) Mean Corpuscular Hemoglobin Concent 34.0% (32.0-37.0) Red Cell Distribution Width 12.9% (12.3-15.4) Platelet Count 268bil/L (150-400) Neutrophils (%) (Auto) 81.6% (40-74) Lymphocytes (%) (Auto) 5.5% (14-46) Monocytes (%) (Auto) 12.5% (4-12) Eosinophils (%) (Auto) 0% (0-5) Basophils (%) (Auto) 0.1% (0-3) Sodium Level 134mEq/L (134-144) Potassium Level 3.9mEq/L (3.5-5.2) Chloride Level 99mEq/L (97-108) Carbon Dioxide Level 20mmol/L (18-29) Blood Urea Nitrogen 7mg/dL (6-20) Estimat Glomerular Filtration Rate 127mL/min (>59) Glucose Level 115mg/dL (60-99) Calcium Level 8.8mg/dL (8.5-10.1) Total Bilirubin 0.3mg/dL (0.0-1.2) Aspartate Amino Transf (AST/SGOT) 15U/L (0-50) Alanine Aminotransferase (ALT/SGPT) 14U/L (0-44) Alkaline Phosphatase 89U/L (25-150) Total Protein 6.8g/dL (6.4-8.4) Albumin 4.0g/dL (3.4-5.0) Vancomycin Level Trough 14.0mcg/mL Creatinine 1.19mg/dL (0.76-1.27) Comment: abscess of left 2nd toe Procedure Result Verified Site Microbiology KATIE GS (GRAM STAIN) Final 05/27/17-1101 GRAM STAIN RESULT NO POLYS NO ORGANISMS SEEN KATIE CULT AEROBIC Preliminary 05/28/17-0656 PRELIMINARY ID STAPH, PROBABLE STAPH AUREUS SUSCEPTIBILITIES TO FOLLOW COLONY COUNT/QUANTITY LIGHT GROWTH Exam General: Alert, Oriented X3, Cooperative, Mild Distress (due to nausea) Lower Extremities: Left: Edema localized (improved) Lower Extremity Pulses: Palpable: Left Dorsalis Pedis Left Posterior Tibal Right Dorsalis Pedis Right Posterior Tibal Podiatry WOUND : Wound Location/Description Ulcer distal tip second toe, right foot: 0.3 x 0.2 cm and 0.1 cm in depth, dry, reducing erythema. Ulcer plantar right great toe: 0.3 cm x 0.1 cm in size, 0.2 cm in depth, callused edges. Ulcer distal tip second toe, left foot: 0.2 x 0.3 cm and 0.1 cm in depth, fibrinous, reduced periwound erythema. Resolved ascending cellulitis. Bilateral hammertoes 2 through 5. Assessment & Plan Problems: (1) Cellulitis of left lower extremity Plan: The patient may be discharged on oral cephalexin for one week. He has a follow up visit with me in the wound center on 06/02/17, 4:00pm. I will contact him in the next 1-2 days when susceptibilities are final, in case oral antibiotics need to be changed. 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 Hibiclens wash instructed for home use. The most important thing is to keep him off of his feet for a week. He can bear weight to tolerance in postoperative shoes. However, it is imperative that he not return to work for 1 week to allow this to resolve in preparation for flexor tenotomy procedures to decrease the flexion contracture of the lesser digits and the chance for re- ulceration. Status: Acute ICD Code: L97.502 VTE Prophylaxis: Sub-Q Heparin (Unfractionated) Rama Rausch DPM May 28, 2017 10:08
[2017-05-28] MEDS ORDERED: AMLO5TAB2 PO (10:16)
[2017-05-28] MEDS ORDERED: CEPH500C PO (10:16)
[2017-05-28 10:32] VITALS: BP 176/123; PULSE 68
[2017-05-28] MEDS ORDERED: OXYC15TA45 PO (10:52)
--- NOTE | 2017-05-28 11:09 | NUR ---
Blood pressure BP 164/102 this AM during prior to Amlodipine dose. Blood pressure recheck after dose 176/123. Hospitalist informed and an additional dose of Amlodipine 5mg ordered and given. Addendum: 05/28/17 at 1146 by FRANCINE SANCHEZ RN BP now 155/96
[2017-05-28 11:45] VITALS: BP 155/96; PULSE 67
--- NOTE | 2017-05-28 13:12 | NUR ---
Social Work: Screening/Discharge/Multidisciplinary Rounds D: EMR reviewed. Pt is a 26 y/o male [place] - with a readmit risk score of 2 - for cellulitis toe infection per H&P. Pt's insurance is [employer] and PCP is Rupesh Elias MD. Per EMR, pt lives at home with family in [place]. Pt's NOK is mother Dafne Carter [phone]. Pt declined DPOA/advanced directive ppw upon admit. Per EMR, pt does not screen in for full assessment. Pt discussed in multidisciplinary rounds, no SW needs identified, no MD orders received. Per MD, pt is medically for discharge home today via POV - MD indicated no SW needs for discharge. SW will continue to follow pt for potential needs that may arise prior to discharge. A: Pt who is independent at baseline and capable of self-care. P: Pt to discharge home today via POV. No SW needs identified at this time, no MD order(s) received. MD indicated that SW does not need to see pt prior to discharge - pt has no discharge needs. DONTE Luis
--- NOTE | 2017-05-28 13:50 | NUR ---
Discharge Patient left floor at 1351 in wheelchair pushed by UA to be driven home by Mother. All discharge information discussed with patient, including medications, follow up appointments, and education regarding blood pressure. IV d/c'd intact. All belongings left with patient.
--- NOTE | 2017-05-28 22:40 | PCM.DC.MED ---
Discharge Summary Date of Service May 28, 2017 Dates of Hospitalization Date of Hospital Admission May 26, 2017 at 20:55 Date of Discharge: May 28, 2017 Providers: Admitting Physician: Izabela Singh DO Primary Care Physician: Rupesh Elias MD Attending Physician: Naldo Lindsay MD Diagnosis at Time of Discharge Diagnosis at Time of Discharge # left foot Cellulitis with ulcer , acute, POA -s/p bedside debridement 06/27 # hypertension, acute, POA # Morbid obesity, chronic, POA Consultations podiatry Dr Rausch Procedures XRay, CTs & MRIs Patient Name: TC CARTER MR#: [id number] Location: [facility] [place] Ordering Phys: DOC, ED Date of Service: 05/26/17 174 PROCEDURE: X-RAY CHEST ONE VIEW, PORTABLE ([id number]) INDICATIONS: 26 year-old male with cellulitis and fevers. TECHNIQUE: One view of the chest was acquired. COMPARISON: None. FINDINGS: Surgical changes and devices: None. Lungs and pleura: No pleural effusions or pneumothorax. Lungs are clear. Mediastinum: Mediastinal contours appear normal. Heart size is normal. Bones and chest wall: No suspicious bony lesions. Overlying soft tissues appear unremarkable. IMPRESSION: No acute cardiopulmonary disease. Dictated by: Luis Pagan M.D. on 05/26/2017 at 18:21 Approved by: Luis Pagan M.D. on 05/26/2017 at 18:21 Brief History per HPI 26yoM with past medical history of hereditary peripheral neuropathy admitted for worsening of chronic infection in lower extremity. Patient is interviewed with mother, father and brother present. Patient continues to be a little confused and majority of history is obtained from mother. Mr. Carter has a history of peripheral neuropathy and chronic toe ulcers managed by Dr. Rausch or podiatry. Most recently with history of right lower extremity cellulitis 2 weeks prior to presentation. On 05/24 patient began to have increased erythema of the left second toe and started on bactrim. He was able to take 3 doses and following the fourth dose, prior to admission , patient became nauseated with associated vomiting,fevers, chills, confusion and worsening left lower extremity erythema. Dr. Rausch was notified and advised to present to [facility] ED. Upon arrival patient with mildly elevated temperature at 37.7, RR of 37 and WBC 11.4. CXR was completed with recent increase in coughing and some complaints of mild dyspnea with results of no acute cardiopulmonary disease. Following admission to the floor patient and family feel that mentation has improved and overall patient is feeling better. Hospital Course 26yoM with past medical history of hereditary peripheral neuropathy admitted for worsening of chronic infection in lower extremity. # left foot Cellulitis with ulcer , acute, POA -not meeting sepsis criteria on admission -failure of outpatient treatment as per report,bactrim caused n/v -piperacillin-tazobactam and vancomycin started in ED, continue with vancomycin. Switched Zosyn to ceftriaxone.spoke with Dr Rausch .cellulitis improved markedly.discharge on Keflex for 7 days -pain management, oxycodone 15mg POq4hr PRN, acetaminophen PRN -podiatry Dr Rausch consulted and did bedside debridement of ulcer # Cough, acute, POA -recent increase in non-productive cough -WBC elevated but likely 2/2 cellulitis -CXR reviewed on admission, no acute disease present # HTN,new diagnosis -started amlodipine 5mg daily -follow up with PCP closely # Elevated glucose, acute, POA -no history of diabetes -hgbA1c 5.3 # Morbid obesity, chronic, POA -BMI 50.3 discharge home Exam Vital Signs (Last) Date Time Temp Pulse Resp B/P Pulse Ox O2 Delivery O2 Flow Rate FiO2 05/28/17 11:45 67 155/96 05/28/17 09:10 36.6 18 98 Room Air Exam General: Alert, Oriented X3, Cooperative, No acute Distress Eyes: PERRLA, Scleral Anicteric Mouth: Mouth Normal, Mucous Membranes Moist/[place] Neck: Supple, no Thyromegaly, trachea central. Chest & Lungs: Clear to auscultation & percussion, No adventitious breath sounds, no crackles, no wheeze Cardiovascular: Normal S1, Normal S2, No Murmurs/Rubs/Gallops, Regular Rate/ Rhythm Pulses: Radial (present and equal), Dorsalis Pedi (present and equal) Abdomen: Soft,No Tenderness, Non-distended, Normoactive bowel tones. Musculoskeletal: Unremarkable. Normal range of motion, no swollen or erythematous joints aside from left lower extremity Extremities: No edema, no cyanosis, no clubbing --- right lower extremity toes taped, no erythema, erythema / warmth noted on left second toe, wrapped and taped on admission, some mild erythema above sock line, warm per podiatry "Ulcer distal tip second toe, right foot: Thick callus, after debridement measures a wound of 0.4 x 0.3 cm and 0.2 cm in depth, fibrinous, mild periwound erythema. Ulcer plantar right great toe: 0.3 cm x 0.1 cm in size, 0.2 cm in depth, callused edges. Ulcer distal tip second toe, left foot: Thick callus, after debridement measures a wound of 0.3 x 0.3 cm and 0.3 cm in depth, fibrinous, tracks laterally and dorsally with purulence, moderate periwound erythema. Resolving ascending cellulitis. Bilateral hammertoes 2 through 5." Skin: No rashes. Warm and dry Neurological: Grossly neurologically intact, Normal Speech, Sensation Intact Lymphatic: Lymph nodes Cervical and Axillary not palpable. Test 05/26/17 17:55 05/26/17 19:10 05/26/17 19:21 05/26/17 20:30 Urine Color Yellow (YELLOW) Urine Appearance Clear (CLEAR,HAZY) Urine pH 8.0 (5.0-8.0) Urine Specific Crawford 1.015 (1.003-1.035) Urine Protein Negativemg/dL (NEG,TRACE) Urine Glucose (UA) Negativemg/dL (NEGATIVE) Urine Ketones Tracemg/dL (NEGATIVE) Urine Occult Blood Negative (NEGATIVE) Urine Nitrite Negative (NEGATIVE) Urine Bilirubin Negative (NEGATIVE) Urine Urobilinogen Normalmg/dL (NORMAL) Urine Leukocyte Esterase Negative (NEGATIVE) Urine RBC 0-2/hpf (0-2) Urine WBC 0-5/hpf (0-5) Urine Epithelial Cells Occasional/hpf (NONE-MOD) Urine Crystals None seen (NONE SEEN) Urine Bacteria Few/hpf (NONE-FEW) Urine Hyaline Casts None/lpf (NONE) Urine Granular Casts None seen (NONE SEEN) Urine Waxy Casts None seen (NONE SEEN) Urine Red Blood Cell Casts None seen (NONE SEEN) Urine White Blood Cell Casts None seen (NONE SEEN) Urine Mucus None seen (None Seen) Urine Trichomonas None seen (NONE SEEN) Urine Yeast None (NONE SEEN) Urinalysis Comment None Urine Culture Reflexed Not indicated Lactic Acid Level 1.1mmol/L (0.4-2.0) Hemoglobin A1c 5.3% (4.8-5.6) Magnesium Level 1.9mg/dL (1.6-2.6) Troponin T < 0.010ug/L (0.0-0.011) Hold Sanchez Top Tube Received (Received) Hold Urine Received (Received) Test 05/27/17 07:10 05/27/17 18:15 05/28/17 06:25 White Blood Count 7.8th/mm3 (3.8-10.1) Red Blood Count 4.59mil/mm3 (4.40-5.80) Hemoglobin 13.6g/dL (13.8-17.2) Hematocrit 40.0% (41.0-50.0) Mean Corpuscular Volume 87.1fL (81-100) Mean Corpuscular Hemoglobin 29.6pg (27.0-35.0) Mean Corpuscular Hemoglobin Concent 34.0% (32.0-37.0) Red Cell Distribution Width 12.9% (12.3-15.4) Platelet Count 268bil/L (150-400) Neutrophils (%) (Auto) 81.6% (40-74) Lymphocytes (%) (Auto) 5.5% (14-46) Monocytes (%) (Auto) 12.5% (4-12) Eosinophils (%) (Auto) 0% (0-5) Basophils (%) (Auto) 0.1% (0-3) Sodium Level 134mEq/L (134-144) Potassium Level 3.9mEq/L (3.5-5.2) Chloride Level 99mEq/L (97-108) Carbon Dioxide Level 20mmol/L (18-29) Blood Urea Nitrogen 7mg/dL (6-20) Estimat Glomerular Filtration Rate 127mL/min (>59) Glucose Level 115mg/dL (60-99) Calcium Level 8.8mg/dL (8.5-10.1) Total Bilirubin 0.3mg/dL (0.0-1.2) Aspartate Amino Transf (AST/SGOT) 15U/L (0-50) Alanine Aminotransferase (ALT/SGPT) 14U/L (0-44) Alkaline Phosphatase 89U/L (25-150) Total Protein 6.8g/dL (6.4-8.4) Albumin 4.0g/dL (3.4-5.0) Vancomycin Level Trough 14.0mcg/mL Creatinine 1.19mg/dL (0.76-1.27) Discharge Medications Discharge Medications Amlodipine (Amlodipine) 5 Mg Tablet 5 MG PO DAILY Prescribed by: NALDO LINDSAY MD Cephalexin (Cephalexin) 500 Mg Capsule 500 MG PO QID Prescribed by: NALDO LINDSAY MD As needed Oxycodone (Roxicodone) 15 Mg Tablet 15 MG PO Q6H PRN PRN For Pain Prescribed by: NALDO LINDSAY MD Followup Plan Disposition: home Discharge Diet: Low fat, Low Sodium Discharge Activity: No restrictions Patient Instructions You were hospitalized due to left foot cellulitis and neuropathic ulcer . Please continue Keflex as prescribed . Please follow up with Dr Rausch in 2-3 days . You have high blood pressure ,please check your BP regularly and follow up with PCP . Follow-up Provider: Rupesh Elias MD Follow-up with PCP in: 2 weeks Provider: Rama Rausch DPM Follow-up in: 1 week (2-3 days) Time spent 35 minutes counselling on obseity and HTN copies to: Rupesh Elias MD; Rama Rausch DPM, Melaku MD May 28, 2017 22:40
== END 2017-05-28 13:51 | disposition home or self-care (01) | DRG 571 ==
LOC: SED 17:06 → MOC 20:55
PROVIDERS: ADMIT Internal Medicine; ATTEND Internal Medicine
PROC: 0JBR0ZZ Excision of Left Foot Subcutaneous Tissue and Fascia, Open Approach (ICD-10-PCS; principal; 2017-05-27)
DX: L03.116 Cellulitis of left lower limb (principal); Z68.43 Body mass index [BMI] 50.0-59.9, adult; I10 Essential (primary) hypertension; E66.01 Morbid (severe) obesity due to excess calories; R73.9 Hyperglycemia, unspecified; G60.9 Hereditary and idiopathic neuropathy, unspecified; M20.5X1 Other deformities of toe(s) (acquired), right foot; L97.522 Non-pressure chronic ulcer of other part of left foot with fat layer exposed